=== PATIENT | male | born 1955 ===

== ENCOUNTER 2017-03-23 17:46 | Emergency (ER) | payer MEDICARE, MEDICAID ==
[2017-03-23 17:57] VITALS: BMI 22.7
[2017-03-23 17:58] VITALS: O2SAT 96
--- NOTE | 2017-03-23 19:46 | C.PDOC ---
History Of Present Illness 61 y/o male presents to ED with complaint of right sided rib pain for 2 weeks. Patient reports he fell onto his right side 2 weeks ago and states that pain has persisted, prompting ER visit. Denies any other injuries. Otherwise, denies chest pain, SOB, cough, nausea, vomiting, back pain, new weakness, new numbness , or other complaints Patient notes pain worses with deep inspiration. Time Seen by Provider: 03/23/17 18:19 Chief Complaint (Nursing): Back Pain History Per: Patient History/Exam Limitations: no limitations Onset/Duration Of Symptoms: Days Current Symptoms Are (Timing): Still Present Quality Of Discomfort: "Pain" Previous Symptoms: None Associated Symptoms: denies: Incontinence, New Weakness, New Numbness Exacerbating Factor(s): Other (deep inspiration) Recent travel outside of the [place]: No Past Medical History Reviewed: Historical Data, Nursing Documentation, Vital Signs Vital Signs: Last Vital Signs Temp 98 F 03/23/17 19:50 Pulse 77 03/23/17 19:50 Resp 16 03/23/17 19:50 BP 132/80 03/23/17 19:50 Pulse Ox 96 03/23/17 21:20 - Medical History PMH: Anxiety, Depression, HTN, Hypercholesterolemia, Hyperlipidemia, Hyperthyroidism Surgical History: Appendectomy - [facility] Procedures ENDOSCOPIC BIOPSY OF RECTUM (07/27/13) INJECT/INFUSE ELECTROLYT (05/04/15) INJECT/INFUSE NEC (05/04/15) Family History: States: Unknown Family Hx - Social History Hx Alcohol Use: No (former) Hx Substance Use: No - Immunization History Hx Tetanus Toxoid Vaccination: No Hx Influenza Vaccination: No Hx Pneumococcal Vaccination: No Review Of Systems Except As Marked, All Systems Reviewed And Found Negative. Constitutional: Negative for: Fever, Chills Cardiovascular: Negative for: Chest Pain, Palpitations Respiratory: Negative for: Cough, Shortness of Breath, Wheezing Gastrointestinal: Negative for: Nausea, Vomiting, Abdominal Pain Musculoskeletal: Positive for: Other (right sided rib pain ). Negative for: Neck Pain Skin: Negative for: Rash Neurological: Negative for: Weakness, Numbness Physical Exam - Physical Exam Appears: Non-toxic, No Acute Distress Skin: Normal Color, Warm, Dry Head: Atraumatic, Normacephalic Chest: Symmetrical, No Deformity, Tenderness (lateral right sided rib tenderness ), No Ecchymosis Cardiovascular: Rhythm Regular Respiratory: Normal Breath Sounds, No Rales, No Rhonchi, No Wheezing Gastrointestinal/Abdominal: Normal Exam, Soft, No Tenderness Back: Normal Inspection, No Vertebral Tenderness, No Paraspinal Tenderness Extremity: Normal ROM, Capillary Refill (< 2 sec. ) Neurological/Psych: Oriented x3, Normal Speech, Normal Cognition ED Course And Treatment O2 Sat by Pulse Oximetry: 96 (RA) Pulse Ox Interpretation: Normal - Other Rad RIBS AND CHEST RIGHT XR X-Ray: Interpreted by Me, Viewed By Me Interpretation: questionable fracture Progress Note: Treated with Toradol and prednisone. R sided ribs/chest x-ray ordered and reviewed. On re-evaluation, patient is in no acute distress, with improvement of pain. Lungs remain CTA. Ambulatory in the ED with steady gait. Patient advised f/u with PMD/clinic within 1-2 days. Disposition - Disposition Referrals: Carlos Mart MD [Staff Provider] - Disposition: HOME/ ROUTINE Disposition Time: 19:39 Condition: GOOD Additional Instructions: Follow up with the medical doctor within 1-2 days. Return if worsened. 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 - Scribe Statement The provider has reviewed the documentation as recorded by the Phil Giles All medical record entries made by the Phil were at my direction and personally dictated by me. I have reviewed the chart and agree that the record accurately reflects my personal performance of the history, physical exam, medical decision making, and the department course for this patient. I have also personally directed, reviewed, and agree with the discharge instructions and disposition.
[2017-03-23 20:21] VITALS: BP 132/80; PULSE 77; RESP 16; TEMP 98
--- NOTE | 2017-03-24 08:04 | RAD ---
PROCEDURE: Radiographs of the Chest and Right Ribs. HISTORY: rib injury COMPARISON: None available. TECHNIQUE: Frontal radiograph of the chest and multiple oblique radiographs of the right ribs were obtained. FINDINGS: RIGHT RIBS: No fracture or focal lesion visualized. LUNGS: Clear. PLEURA: No pneumothorax or pleural fluid. CARDIOVASCULAR: Normal sized heart. No pulmonary vascular congestion. OTHER FINDINGS: None. IMPRESSION: Unremarkable radiographs of the chest and right ribs. No right rib fracture.
== END 2017-03-23 20:21 | disposition home or self-care (01) ==
LOC: C.ER 17:46
DX: S22.31XA Fracture of one rib, right side, initial encounter for closed fracture (principal); W19.XXXA Unspecified fall, initial encounter; Y93.9 Activity, unspecified; Y92.9 Unspecified place or not applicable
CPT/HCPCS: 71101; 96372; 99283; J1885